=== PATIENT | male | born 1985 | race Caucasian/White ===

== ENCOUNTER 2020-02-23 08:34 | Emergency (ER) | payer SELFPAY ==
[~2020-02-23] VITALS: Ht 180.3 cm; Wt 93.6 kg
[2020-02-23 08:44] VITALS: Ht 180.3 cm; Wt 93.6 kg
[2020-02-23] MEDS ORDERED: COLCRYS0.6 MG PO (09:29)
[2020-02-23] MEDS ORDERED: PREDNISONE20 MG PO (09:29)
[2020-02-23] MEDS ORDERED: HYDROCODON-ACE1 EAC7 PO (09:29)
[2020-02-23 09:41] VITALS: BP 132/82
== END 2020-02-23 09:43 | disposition home or self-care (01) ==
LOC: D.ER 08:34
DX: M10.9 Gout, unspecified (principal); M79.674 Pain in right toe(s)

== ENCOUNTER 2020-11-23 14:00 | Emergency (ER) | payer OTHER ==
[~2020-11-23] VITALS: Ht 180.3 cm; Wt 108.2 kg
[~2020-11-23 14:00] MED LIST: COLCRYS0.6 MG PO; HYDROCODON-ACE1 EAC7 PO; PREDNISONE20 MG PO
[2020-11-23 14:11] VITALS: BP 146/86; Ht 180.3 cm; Wt 108.2 kg
[2020-11-23] MEDS ORDERED: KLONOPIN0.5 MG PO (14:13)
[2020-11-23] MEDS ORDERED: LIPITOR20 MG PO (14:13)
[2020-11-23] MEDS ORDERED: CYCLOBENZAPRINE10 MG PO (16:12)
[2020-11-23] MEDS ORDERED: VOLTAREN75 MG PO (16:12)
== END 2020-11-23 16:48 | disposition home or self-care (01) ==
LOC: D.ER 14:00
DX: S16.1XXA Strain of muscle, fascia and tendon at neck level, initial encounter (principal); M54.5 Low back pain; M79.10 Myalgia, unspecified site; V89.2XXA Person injured in unspecified motor-vehicle accident, traffic, initial encounter; Y93.9 Activity, unspecified; Y92.9 Unspecified place or not applicable